=== PATIENT | female | born 1995 | race Caucasian/White ===

== ENCOUNTER 2021-05-29 10:35 | Emergency (ER) | payer OTHER ==
[~2021-05-29] VITALS: Ht 157.5 cm; Wt 56.7 kg
[~2021-05-29 10:35] MED LIST: MEDROLDOSEPACK PO; TRIAMCINOLONE A80 G2 TOP
[2021-05-29] MEDS ORDERED: DOXYCYCLINE 10100 MG PO (11:15)
[2021-05-29 11:23] VITALS: BP 151/97
== END 2021-05-29 11:23 | disposition home or self-care (01) ==
LOC: M.ERS 10:35
DX: L02.411 Cutaneous abscess of right axilla (principal); Z88.0 Allergy status to penicillin